=== PATIENT | male | born 1950 | race Hispanic/Latino ===

== ENCOUNTER 2018-01-15 00:25 | Inpatient (IN) | payer BC, MEDICARE ==
[2018-01-15 00:56] LABS: #Basophils 0.1 thou/uL (0.0-0.2); #Eosinphils 0.1 thou/uL (0.0-0.7); #Lymphocytes 3.3 thou/uL (1.20-3.40); #Monocytes 0.7 thou/uL (0.11-0.59); #Neutrophils 5.2 thou/uL (1.40-6.50); %Basophils 0.9 % (0.0-1.0); %Eosinophils 1.3 % (0.0-10.0); %Lymphocytes 35.3 % (21.0-51.0); %Neutrophils 55.6 % (42.0-75.0); Hemoglobin 14.4 g/dL (14.0-18.0); Mean Corpuscular HGB CONC 33.5 g/dL (32.0-36.0); Mean Corpuscular Volume 92.6 fL (78.0-98.0); Mean Platelet Volume 9.3 fL (7.4-10.4); Platelet Count 189 thou/uL (130-400); RBC Distribution Width 11.6 % (11.5-14.5); Red Blood Cell (RBC) Count 4.66 mill/uL (4.70-6.10); White Blood Cell (WBC) Count 9.4 thou/uL (4.8-10.8)
[2018-01-15 01:01] LABS: INR-International Normal Ratio 1.2; Prothrombin Time 14.9 SEC (12.0-14.7)
[2018-01-15] MEDS ORDERED: niCARdipine 20MG In NaCl 20 MG/200 ML BAG ONE (01:02)
[2018-01-15 01:15] LABS: ALT (SGPT) 35 U/L (8-55); AST (SGOT) 28 U/L (5-34); Albumin 4.7 g/dL (3.4-4.8); Alkaline Phosphatase 81 U/L (40-150); Anion Gap 16 mmol/L (10-20); BUN (Urea Nitrogen) 25 mg/dL (8.4-25.7); Bilirubin, Total 0.8 mg/dL (0.2-1.2); Calc. Creatinine Clearance 0 mL/min (70-130); Calcium 9.9 mg/dL (7.8-10.44); Carbon Dioxide 22 mmol/L (23-31); Chloride 102 mmol/L (98-107); Estimated GFR-MDRD 55; Globulin 2.8 g/dL (2.4-3.5); Glucose 188 mg/dL (80-115); Protein, Total 7.5 g/dL (5.8-8.1); Sodium 136 mmol/L (136-145)
[2018-01-15 01:19] LABS: CKMB 2.4 ng/mL (0-6.6); Troponin I Less than 0.010 ng/mL (< 0.028)
[2018-01-15] MEDS ORDERED: Ondansetron PF 4 MG/2 ML Vial IVP PRN (01:50)
[2018-01-15] MEDS: Sodium Chloride 0.9% 1,000 ML IV SCH ×2 (02:52→14:32)
[2018-01-15] MEDS: Acetaminophen 650 MG in Premix Bag 1 BAG IVPB PRN ×3 (02:52→14:32)
[2018-01-15] MEDS: niCARdipine HCl 25 MG in Sodium Chloride 0.9% 250 ML 240 ML IVPB SCH ×2 (03:39→06:08)
--- NOTE | 2018-01-15 07:07 | HP-2 ---
DATE OF ADMISSION: 01/15/2018 ATTENDING PHYSICIAN: Claus Carter M.D. HISTORY OF PRESENT ILLNESS: The patient is a 67-year-old male with a past medical history o f hypertension, hyperlipidemia, type 2 diabetes, who presented to the emergency department per EMS fo r acute onset of left-sided weakness, left-sided facial droop, and confusion, which began around 23:5 5 where he works at [employer]. CT head was done on arrival, which was notable for a large righ t-sided basal ganglia, intracranial hemorrhage with extension into the right frontal lobe with eviden ce of midline shift from right to left. Patient was also significantly hypertensive on arrival with systolic blood pressure greater than 200 initially. Neurosurgery was consulted for further evaluatio n and management of this patient. I presented to the emergency department and saw the patient in bed 10. Family is also at the bedside. The patient is Citizen Of [place]-speaking only and they are able to trans late for me. The patient is oriented to person and time, but not place. He believes he is currently at work and very confused. He has flaccid left upper extremity paralysis and left-sided neglect. H braden is also noted to have a left-sided facial droop. He has good right-sided strength and follows comm ands on this side as well. He is seen moving the left lower extremity spontaneously. ER has recentl y started Cardene drip and he has had improvement in his blood pressure; most recent blood pressure w hile I am in the room was 167/71. Family reports that the patient does not take any anticoagulants o r aspirin on a regular basis. PAST MEDICAL HISTORY: Hypertension, hyperlipidemia, type 2 diabetes, hypothyroid. PAST SURGICAL HISTORY: Denied any prior surgeries. SOCIAL HISTORY: The patient does not smoke, drink, or use any drugs. ALLERGIES: He has no known drug allergies. REVIEW OF SYSTEMS: Per HPI. PHYSICAL EXAMINATION: VITAL SIGNS: BP is 167/71, respiration rate is 18, he is 100% on room air, pulse rate is 124, and a temperature of 96.6. CONSTITUTIONAL: Patient is awake and alert. He is oriented to person and year. He is not oriented to place and markedly confused. He does follow some commands. HEAD: Normocephalic, atraumatic. Noted left-sided facial droop. EYES: PERRLA. Extraocular movements are intact. NECK: Nontender to palpation. Free active range of motion, no meningismus or nuchal rigidity. RESPIRATORY: He has a normal respiration rate. Symmetric chest expansion, no evidence of dyspnea. CARDIOVASCULAR: Tachycardic. MUSCULOSKELETAL: No deformities are appreciated. He has flaccid paralysis of the left upper extremi ty. He has good right-sided strength in the right upper and lower extremities and is able to move th is side without difficulty. NEUROLOGIC: He is oriented to person and time. He has normal speech. He is not oriented to place. He is noted to have a left-sided facial droop and left-sided with flaccid paralysis to the lef t upper extremity. ASSESSMENT: Acute intracranial hemorrhage, likely hypertensive in origin. PLAN: The patient will be admitted to the ICU for q.1 neuro checks and close monitoring. He was sta rted on a Cardene drip for strict blood pressure control with a soft systolic blood pressure goal of 140. Head of the bed will be elevated to 30 degrees. He has no history of anticoagulant use and the n will be given at this time. SCDs for DVT prophylaxis. I have also consulted Critical Care, the spitalist, and Stroke team for assistance in medical management. We will plan to repeat his a.m. CT head at 5 in the morning. I have discussed this plan with Dr. Carter, who is also in agreement.
[2018-01-15 07:15] LABS: #Monocytes 0.5 thou/uL (0.11-0.59); #Neutrophils 8.5 thou/uL (1.40-6.50); %Basophils 0.2 % (0.0-1.0); %Eosinophils 0.1 % (0.0-10.0); %Lymphocytes 9.5 % (21.0-51.0); %Neutrophils 85.1 % (42.0-75.0); Mean Corpuscular HGB CONC 33.3 g/dL (32.0-36.0); Mean Corpuscular Hemoglobin 31.4 pg (27.0-31.0); Mean Corpuscular Volume 94.1 fL (78.0-98.0); Mean Platelet Volume 9.3 fL (7.4-10.4); Platelet Count 168 thou/uL (130-400); RBC Distribution Width 11.5 % (11.5-14.5); Red Blood Cell (RBC) Count 4.48 mill/uL (4.70-6.10); White Blood Cell (WBC) Count 9.9 thou/uL (4.8-10.8)
[2018-01-15 07:29] LABS: Anion Gap 11 mmol/L (10-20); BUN (Urea Nitrogen) 21 mg/dL (8.4-25.7); Calc. Creatinine Clearance 67 mL/min (70-130); Calcium 9.4 mg/dL (7.8-10.44); Carbon Dioxide 20 mmol/L (23-31); Chloride 104 mmol/L (98-107); Estimated GFR-MDRD 67; Glucose 240 mg/dL (80-115); Sodium 131 mmol/L (136-145)
--- NOTE | 2018-01-15 07:46 | CT ---
CT OF THE BRAIN WITHOUT CONTRAST: INDICATION: Level I stroke with presentation to the ER with left facial droop, left-sided weakness, last seen nor [facility] at 2355 hours. COMPARISON: Prior CT of the brain dated 01/22/2014. FINDINGS: There is a large intraparenchymal hemorrhage centered within the right globus pallidus extending into the right frontal lobe measuring 9.0 x 3.3 cm. There is [id number] midline shift of 1.2 cm. The re is stable encephalomalacia within the left frontal lobe. The skull and extracranial soft tissues are unremarkable. IMPRESSION: Large intraparenchymal hemorrhage centered within the right globus pallidus extending into the right frontal lobe with [id number] midline shift of 1.2 cm anteriorly. The findings were called to Dr. Bolden at 12:38 a.m. on 01/15/2018. CODE CR POS: BH
--- NOTE | 2018-01-15 10:39 | PRG ---
DATE OF SERVICE: 01/15/2018 The patient was seen and examined. I agree with Anny Schumacher PA-C evaluation 01/15/2018. HISTORY OF PRESENT ILLNESS: The patient is a 67-year-old man who suddenly became hemiplegic and was brought to the emergency room. He was found to be severely hypertensive. Currently, he is alert, dysarthric and Filipino speaking. He does say his name and follow commands. He has a dense left hemiplegia. He has left-sided neglect. He is strong on the right. CT of the head reveals a very large right inferior basal ganglia hemorrhage with extension into the r ight medial temporal lobe and probably in the right temporal horn of lateral ventricle. There is no hydrocephalus and moderate mass effect. This was stable on followup CT this morning. IMPRESSION AND PLAN: Large basal ganglia hemorrhage. We will continue close observation with neuro monitoring in the ICU for today. He remains high risk for deterioration. We will continue with clos e blood pressure control, attempt a bedside swallow evaluation and pursue hemorrhagic stroke orders. We will plan repeat head CT tomorrow. I updated the patient's and daughter.
--- NOTE | 2018-01-15 12:14 | CT ---
PRELIMINARY REPORT/[facility]/EMERGENCY AFTER HOURS PROCEDURE: EXAM: CT Head Without Intravenous Contrast EXAM DATE/TIME: 01/15/2018 4:58 AM CLINICAL HISTORY: 67 years old, male; Condition or disease; Other: Stroke; Patient HX: F/u stroke/ intracerebral hemorr robby TECHNIQUE: Axial computed tomography images of the head/brain without intravenous contrast. COMPARISON: CT Brain WO Con 01/15/2018 12:31 AM FINDINGS: Brain: Redemonstrated is a 8 cm RIGHT frontotemporal lobe parenchymal hematoma with surrounding edema resulting in mass effect/midline shift of at least 16 mm, essentially unchanged from prior. Ventricles: There is effacement of the RIGHT lateral ventricle. Bones/joints: Normal. No acute fracture. Sinuses: Normal as visualized. No acute sinusitis. Mastoid air cells: Normal as visualized. No mastoid effusion. Soft tissues: Normal. Vasculature: Posterior falx calcifications are present. IMPRESSION: Large RIGHT frontotemporal lobe parenchymal hematoma with midline shift, essentially unchanged from p rior. Thank you for allowing us to participate in the care of your patient. Dictated and Authenticated by: Johan Alberto MD 01/15/2018 5:12 AM Central Time ([place] & [place]) FINAL REPORT CT HEAD NONCONTRAST PERFORMED ON AN EMERGENCY BASIS: Date: 01/15/18 Time: 0500 hours HISTORY: Intracranial hemorrhage. Follow-up. COMPARISON: 01/15/18. FINDINGS/IMPRESSION: Findings agree with the preliminary report by Marin. The large intraparenchymal hematoma at the right cerebral hemisphere and associated mass effect are not significantly changed from the previous exam. POS: CRESENCIO
[2018-01-15] MEDS: Morphine 2 MG/ML SYRINGE SLOW IVP PRN (14:33)
--- NOTE | 2018-01-15 21:59 | CON ---
DATE OF CONSULTATION: 01/15/2018 HISTORY OF PRESENT ILLNESS: Darshana is an unfortunate gentleman had a parenchymal brain hemo rrhage. He has been admitted to the critical care unit. At this time, he is stable from an airway standpoint . I was consulted because of his presence in the critical care unit. PAST MEDICAL HISTORY: Remarkable for lipid disorder, diabetes, hypertension, and hypothyroidism. SOCIAL HISTORY: Non-smoker, nondrinker. ALLERGIES: He has no drug allergies. REVIEW OF SYSTEMS: Not obtainable. PHYSICAL EXAMINATION: VITAL SIGNS: Blood pressure 137/66, heart rate in the 60s, sinus rhythm, respiratory rate is in the teens. HEENT: His pupils react. Sclerae is anicteric. Extraocular movements appear to be full. He has le ft facial droop. NECK: Supple, no lymphadenopathy. LUNGS: Clear. HEART: Regular rhythm. S1 and S2 are normal. ABDOMEN: Soft and nontender. EXTREMITIES: Remarkable for left hemiparalysis. IMPRESSION: Parenchymal brain hemorrhage. PLAN: Blood pressure control, observation in the critical care unit. A 70-minute consult, 50% of the time was spent coordinating care on the unit.
--- NOTE | 2018-01-15 23:09 | PDOC.PN ---
- Subjective Encounter Start Date: 01/15/18 Encounter Start Time: 12:00 -: non-verbal Patient seen and examined for med mngt. Confused. - Objective MAR Reviewed: Yes Vital Signs & Weight: Vital Signs (12 hours) Temp Pulse Pulse BP BP Pulse Ox Pulse Ox 01/15/18 20:00 99 F 01/15/18 16:00 98.9 F 01/15/18 13:32 67 76 124/68 138/69 98 98 01/15/18 12:00 98 F Weight Admit Weight 160 lb 7.9 oz Weight 160 lb 7.944 oz Most Recent Monitor Data Heart Rate from ECG 78 NIBP 151/75 NIBP BP-Mean 100 Respiration from ECG 17 SpO2 100 I&O: 01/14/18 01/15/18 01/16/18 06:59 06:59 06:59 Intake Total 731 1413 Output Total 1067 2115 Balance -456 -669 Result Diagrams: 01/15/18 06:57 01/15/18 06:57 Additional Labs: Accuchecks 01/15/18 00:28 POC Glucose 148 H EKG Reviewed by me: Yes (SR) Phys Exam - Physical Examination Constitutional: NAD Respiratory: no wheezing, no rhonchi Cardiovascular: RRR, no rub Gastrointestinal: soft, non-tender, positive bowel sounds Musculoskeletal: no edema Neuro/Psych - Cannot assess due to current mentation Dx/Plan - Plan DVT proph w/SCDs 1. DM2 2. HTN 3. HLD 4. Hypothyroidism PLAN: Start sliding scale Cardene drip PRN Will resume PO meds when mentation improves Thank you for this consultation. Will follow Review of Systems - Review of Systems Other: Cannot obtain due to current mentation - Medications/Allergies Allergies/Adverse Reactions: Allergies Allergy/AdvReac Type Severity Reaction Status Date / Time No Known Drug Allergies Allergy Verified 01/15/18 06:09 Medications: Current Medications Acetaminophen 650 mg/ Device 65 mls @ 260 mls/hr IVPB Q6H PRN PRN Reason: Mild Pain (1-3) Stop: 01/16/18 01:38 Last Admin: 01/15/18 14:32 Dose: 65 mls Nicardipine HCl 25 mg/ Sodium (Chloride) 250 mls @ 0 mls/hr IVPB INF [facility]; Protocol Last Admin: 01/15/18 06:08 Dose: 250 mls Sodium Chloride (Normal Saline 0.9%) 1,000 mls @ 75 mls/hr IV .[id number] [id number] Last Admin: 01/15/18 14:32 Dose: 1,000 mls Morphine Sulfate (Morphine) 2 mg SLOW IVP Q4H PRN PRN Reason: Moderate to Severe Pain (6-10) Last Admin: 01/15/18 14:33 Dose: 2 mg Ondansetron HCl (Zofran) 4 mg IVP Q6H PRN PRN Reason: Nausea/Vomiting Pneumococcal 13-Valent Conj Vacc (Prevnar) 0.5 ml IM .ONCE ONE Stop: 01/16/18 09:01 Sodium Chloride (Flush - Normal Saline) 10 ml IVF PRN PRN PRN Reason: Saline Flush
[2018-01-15] MEDS ORDERED: Labetalol HCl 100 MG/20 ML VIAL SLOW IVP PRN (23:13)
[2018-01-15] MEDS ORDERED: hydrALAZINE 20 MG/ML VIAL SLOW IVP PRN (23:13)
[2018-01-15] MEDS ORDERED: Dextrose 50% Abboject 50 ML SYRINGE SLOW IVP PRN (23:14)
[2018-01-15] MEDS ORDERED: Dextrose 5% in Water 1,000 ML IV PRN (23:14)
[2018-01-16] MEDS: Morphine 2 MG/ML SYRINGE SLOW IVP PRN ×3 (03:42→21:16)
[2018-01-16 04:26] LABS: #Lymphocytes 1.4 thou/uL (1.20-3.40); #Monocytes 0.5 thou/uL (0.11-0.59); #Neutrophils 5.9 thou/uL (1.40-6.50); %Basophils 0.1 % (0.0-1.0); %Eosinophils 0.5 % (0.0-10.0); %Lymphocytes 18.2 % (21.0-51.0); %Monocytes 6.2 % (0.0-10.0); %Neutrophils 74.9 % (42.0-75.0); Hemoglobin 13.2 g/dL (14.0-18.0); Mean Corpuscular HGB CONC 32.8 g/dL (32.0-36.0); Mean Corpuscular Hemoglobin 30.8 pg (27.0-31.0); Mean Platelet Volume 9.8 fL (7.4-10.4); Platelet Count 146 thou/uL (130-400); RBC Distribution Width 11.8 % (11.5-14.5); White Blood Cell (WBC) Count 7.9 thou/uL (4.8-10.8)
[2018-01-16 04:54] LABS: Anion Gap 11 mmol/L (10-20); BUN (Urea Nitrogen) 11 mg/dL (8.4-25.7); Calc. Creatinine Clearance 87 mL/min (70-130); Calcium 9.2 mg/dL (7.8-10.44); Carbon Dioxide 23 mmol/L (23-31); Chloride 105 mmol/L (98-107); Estimated GFR-MDRD Greater than 90; Glucose 136 mg/dL (80-115); Magnesium 1.6 mg/dL (1.6-2.6); Potassium 3.7 mmol/L (3.5-5.1); Sodium 135 mmol/L (136-145)
--- NOTE | 2018-01-16 08:14 | CT ---
PRELIMINARY REPORT/[facility]/EMERGENTY AFTER-HOURS PROCEDURE CT Head Without Intravenous Contrast EXAM DATE/TIME: 01/16/2018 3:59 AM CLINICAL HISTORY: 67 years old, male; Condition or disease; Other: Ich; Patient HX: F/u ich TECHNIQUE: Axial computed tomography images of the head/brain without intravenous contrast. COMPARISON: CT Brain WO Con 01/15/2018 4:58 AM FINDINGS: Brain: Redemonstrated is a 8.8 cm RIGHT frontotemporal parenchymal hematoma, unchanged from prior. Midline shift: Stable midline shift. Ventricles: Normal. No ventriculomegaly. Bones/joints: Normal. No acute fracture. Sinuses: Normal as visualized. No acute sinusitis. Mastoid air cells: Normal as visualized. No mastoid effusion. Soft tissues: Normal. IMPRESSION: RIGHT frontal temporal lobe parenchymal hematoma resulting in mass effect/midline shift, essentially unchanged from prior. Thank you for allowing us to participate in the care of your patient. Dictated and Authenticated by: Johan Alberto MD 01/16/2018 4:12 AM Central Time ([place] & [place]) FINAL REPORT EMERGENCY AFTER HOURS BRAIN CT WITHOUT IV CONTRAST: Date: 01/16/18 Time: 0401 hours FINDINGS/IMPRESSION: Large right temporal frontal parenchymal hematoma with approximately 0.7 cm of midline shift to the l eft, stable from 01/15/18. Report in agreement with preliminary report given on-call by Marin. POS: CRESENCIO
[2018-01-16] MEDS ORDERED: Levothyroxine Sodium 125 MCG TAB PO SCH (08:45)
[2018-01-16] MEDS ORDERED: Prevnar 13-Val Conj/PF 0.5 ML SYRINGE IM ONE (09:00)
--- NOTE | 2018-01-16 09:40 | PRG ---
DATE OF SERVICE: 01/16/2018 Mr. Gilliland is neurologically unchanged. He arouses easily, opens his eyes and follows comma nds on the right. He continues to have a dense left hemiparesis. CT scan is unchanged. Blood pressure control remains an issue and I am deferring to the medical team in this regard. He fa iled a swallow evaluation yesterday and I anticipate he will have a repeat swallow evaluation today. If he fails this he will need some type of temporary nutrition presumably via feeding tube. From a neurosurgical perspective, he can be safely transferred out of the ICU once the above issues were add ressed. I updated his son.
--- NOTE | 2018-01-16 09:53 | PRG-2 ---
DATE OF SERVICE: 01/16/2018 ATTENDING PHYSICIAN: Claus Carter M.D. SUBJECTIVE: This is a 67-year-old male who suffered a large right-sided basal ganglia hemorrhage, likely related to uncontrolled hypertension. He has been monitored in the ICU with frequent neuro checks and he continues to gradually improve. His CT scan this morning shows stable right-sided hemorrhage in the basal ganglia region with extension into the right frontal area. There is no hydrocephalus, but there is moderate mass effect. I am visiting the patient in the ICU. He is awake and alert and oriented to person, place and time. He has left-sided neglect. He also has significant left hemiplegia, but this is actually improved today on my exam and he is able to lightly squeeze my hand. He is also able to wiggle his toes today on the left. On the right side, he follows commands, has good strength throughout. IMPRESSION AND PLAN: We will continue to monitor the patient closely in the ICU with strict blood pressure control. Unfortunately, he failed his swallow study yesterday, but we will repeat again today. Continue BP control per medicine team recommendations. Once off cardene pt could transfer to stroke unit if medicine and cc agree. The patient will continue to work with physical therapy and occupational therapy while he is inpatient. CHUYITA
[2018-01-16] MEDS: Amlodipine 5 MG TAB PO SCH ×2 (15:16→20:04)
[2018-01-16] MEDS: Atorvastatin Calcium 20 MG TAB PO SCH (15:18)
[2018-01-16] MEDS: Sodium Chloride 0.9% 1,000 ML IV SCH ×2 (15:18→18:12)
--- NOTE | 2018-01-16 15:22 | RAD ---
ABDOMEN ONE VIEW: History: Dobbhoff placement. Comparison: None. FINDINGS: Dobbhoff is coiled in the gastric body with the tip at the gastric fundus. IMPRESSION: Coiled Dobbhoff tube. Retraction and re-advancement recommended.
--- NOTE | 2018-01-16 17:14 | PRG ---
DATE OF SERVICE: 01/16/2018 SUBJECTIVE: Mr. Gilliland is improved today. He is verbalizing a little bit more obese, but h e still dysarthric. He is ignoring his left side as expected. OBJECTIVE: VITAL SIGNS: Heart rate 62, blood pressure 151/80, respiratory rates in the teens. LUNGS: Clear. CARDIOVASCULAR: Regular rhythm. ABDOMEN: Soft. EXTREMITIES: Without asymmetry. There was weaned off Cardene this morning. LABORATORY DATA: White count 7.9, hemoglobin 13.2, platelets 146. Sodium 135, potassium 3.7, chlori de 105, bicarb 23, BUN 11, creatinine 0.84, glucose 136. IMPRESSION: Hemorrhagic cerebrovascular accident, likely secondary to uncontrolled hypertension. He is unable to swallow at this point, so a Dobbhoff tube has been placed. He is stable to transfer out of the Critical Care environment.
[2018-01-16] MEDS ORDERED: hydrALAZINE 20 MG/ML VIAL SLOW IVP PRN (21:47)
[2018-01-16] MEDS ORDERED: Benzonatate 100 MG CAP PO PRN (22:22)
--- NOTE | 2018-01-16 22:29 | PDOC.PN ---
- Subjective Encounter Start Date: 01/16/18 Encounter Start Time: 09:45 Patient seen and examined for med mngt. Mentation improving No new complaints. No overnight events - Objective MAR Reviewed: Yes Vital Signs & Weight: Vital Signs (12 hours) Temp Pulse BP Pulse Ox 01/16/18 22:02 57 L 164/69 H 01/16/18 20:04 89 156/129 H 01/16/18 19:34 100 01/16/18 19:00 98.5 F 01/16/18 18:12 62 151/80 H 01/16/18 16:00 98.0 F 01/16/18 15:16 62 151/80 H 01/16/18 12:00 98.0 F Weight Admit Weight 160 lb 7.9 oz Weight 157 lb 10.088 oz Most Recent Monitor Data Heart Rate from ECG 65 NIBP 164/69 NIBP BP-Mean 100 Respiration from ECG 15 SpO2 100 I&O: 01/15/18 01/16/18 01/17/18 06:59 06:59 06:59 Intake Total 731 1413 847 Output Total 1065 2495 830 Balance -334 -1082 17 Result Diagrams: 01/17/18 03:45 01/17/18 03:45 Additional Labs: Accuchecks 01/16/18 01/16/18 01/16/18 19:48 17:14 10:30 POC Glucose 146 H 184 H 114 H 01/16/18 01/16/18 04:39 00:01 POC Glucose 129 H 136 H EKG Reviewed by me: Yes (Tele SR) Phys Exam - Physical Examination Constitutional: NAD Respiratory: no wheezing, no rhonchi Cardiovascular: RRR, no rub Gastrointestinal: soft, non-tender, positive bowel sounds Musculoskeletal: no edema Neuro - No new focal deficits Dx/Plan - Plan DVT proph w/SCDs 1. DM2 2. HTN 3. HLD 4. Hypothyroidism 5. Hemorrhagic CVA - Mngt per Primary service 6. Swallow dys PLAN: Cont sliding scale and current meds as below Cardene drip PRN Cont PRN antihtn Will resume PO meds when able to swallow Not on antiplatelet due to hemorrhagic CVA Full code - DPOA - self/family Review of Systems - Review of Systems Respiratory: negative: Cough, Dry, Shortness of Breath, Hemoptysis, SOB with Excertion, Pleuritic Pain, Sputum, Wheezing Cardiovascular: negative: chest pain, palpitations, orthopnea, paroxysmal nocturnal dyspnea, edema, light headedness, other - Medications/Allergies Allergies/Adverse Reactions: Allergies Allergy/AdvReac Type Severity Reaction Status Date / Time No Known Drug Allergies Allergy Verified 01/15/18 06:09 Medications: Current Medications Amlodipine Besylate (Norvasc) 5 mg PO BID [facility] Last Admin: 01/16/18 20:04 Dose: 5 mg Atorvastatin Calcium (Lipitor) 20 mg PO DAILY [facility] Last Admin: 01/16/18 15:18 Dose: Not Given Benzonatate (Tessalon) 100 mg PO TIDPRN PRN PRN Reason: Cough Dextrose/Water (Dextrose 50%) 25 gm SLOW IVP PRN PRN PRN Reason: Hypoglycemia Glucagon (Glucagon) 1 mg IM PRN PRN PRN Reason: Hypoglycemia Hydralazine HCl (Apresoline) 20 mg SLOW IVP Q4H PRN PRN Reason: Sbp Greater Than 150 Last Admin: 01/16/18 22:02 Dose: 20 mg Nicardipine HCl 25 mg/ Sodium (Chloride) 250 mls @ 0 mls/hr IVPB INF [facility]; Protocol Last Admin: 01/15/18 06:08 Dose: 250 mls Sodium Chloride (Normal Saline 0.9%) 1,000 mls @ 75 mls/hr IV .[id number] [facility] Last Admin: 01/16/18 18:12 Dose: 1,000 mls Dextrose/Water (D5w) 1,000 mls @ 0 mls/hr IV .Q0M PRN PRN Reason: Hypoglycemia Insulin Human Regular (Humulin R) 0 units SC .MILD SLIDING SCALE PRN PRN Reason: Mild Correctional Scale Insulin Human Regular (Humulin R) 0 units SC .BEDTIME SLIDING SC PRN PRN Reason: Bedtime Correctional Scale Levothyroxine Sodium (Synthroid) 125 mcg PO 0600 [facility] Lisinopril (Zestril) 20 mg PO NOW [facility] Stop: 01/16/18 23:59 Morphine Sulfate (Morphine) 2 mg SLOW IVP Q4H PRN PRN Reason: Moderate to Severe Pain (6-10) Last Admin: 01/16/18 21:16 Dose: 2 mg Ondansetron HCl (Zofran) 4 mg IVP Q6H PRN PRN Reason: Nausea/Vomiting Sodium Chloride (Flush - Normal Saline) 10 ml IVF PRN PRN PRN Reason: Saline Flush
[2018-01-16] MEDS ORDERED: Lisinopril 20 MG TAB PO SCH (22:30)
[2018-01-16] MEDS ORDERED: cloNIDine 0.1 MG TAB PO SCH (23:59)
[2018-01-17] MEDS: niCARdipine HCl 25 MG in Sodium Chloride 0.9% 250 ML 240 ML IVPB SCH ×2 (01:26→05:24)
[2018-01-17] MEDS: Morphine 2 MG/ML SYRINGE SLOW IVP PRN (01:55)
[2018-01-17 04:11] LABS: #Basophils 0.1 thou/uL (0.0-0.2); #Lymphocytes 1.3 thou/uL (1.20-3.40); #Monocytes 0.7 thou/uL (0.11-0.59); #Neutrophils 8.6 thou/uL (1.40-6.50); %Basophils 0.7 % (0.0-1.0); %Eosinophils 0.3 % (0.0-10.0); %Lymphocytes 12.5 % (21.0-51.0); %Monocytes 6.6 % (0.0-10.0); Hemoglobin 14.2 g/dL (14.0-18.0); Mean Corpuscular HGB CONC 34.1 g/dL (32.0-36.0); Mean Corpuscular Hemoglobin 31.9 pg (27.0-31.0); Mean Corpuscular Volume 93.7 fL (78.0-98.0); Mean Platelet Volume 9.8 fL (7.4-10.4); Platelet Count 152 thou/uL (130-400); RBC Distribution Width 11.7 % (11.5-14.5); Red Blood Cell (RBC) Count 4.46 mill/uL (4.70-6.10); White Blood Cell (WBC) Count 10.8 thou/uL (4.8-10.8)
[2018-01-17 04:31] LABS: Anion Gap 15 mmol/L (10-20); BUN (Urea Nitrogen) 13 mg/dL (8.4-25.7); Calc. Creatinine Clearance 82 mL/min (70-130); Calcium 9.2 mg/dL (7.8-10.44); Carbon Dioxide 19 mmol/L (23-31); Chloride 106 mmol/L (98-107); Estimated GFR-MDRD 87; Glucose 142 mg/dL (80-115); Magnesium 1.7 mg/dL (1.6-2.6); Potassium 3.6 mmol/L (3.5-5.1); Sodium 136 mmol/L (136-145)
[2018-01-17] MEDS: Levothyroxine Sodium 125 MCG TAB PO SCH (05:20)
--- NOTE | 2018-01-17 07:25 | RAD ---
KUB: Date: 01/16/18 INDICATION: Dobbhoff tube placement. IMPRESSION: Dobbhoff feeding tube is seen within the region of the gastric antrum. Remainder of the examination i s unchanged from the comparison obtained earlier at 1510 hours. POS: CRESENCIO
[2018-01-17] MEDS: Amlodipine 5 MG TAB PO SCH ×2 (09:35→20:23)
[2018-01-17] MEDS: Atorvastatin Calcium 20 MG TAB PO SCH (09:35)
[2018-01-17] MEDS: Sodium Chloride 0.9% 1,000 ML IV SCH (10:05)
--- NOTE | 2018-01-17 10:11 | PRG ---
DATE OF SERVICE: 01/17/2018 SUBJECTIVE: He is clinically unchanged. His blood pressure crept up last night. He was placed back on Cardene. OBJECTIVE: VITAL SIGNS: Heart rates in the 60s, blood pressure 131/66, respiratory rates in the teens to low 20 s. LUNGS, HEART, ABDOMEN: Unchanged. LABORATORY DATA: White count 10.8, hemoglobin 14.2, platelets 152. Electrolytes were unremarkable. IMPRESSION: Hemorrhagic cerebrovascular accident, likely secondary to untreated hypertension. PLAN: Continue to adjust hypertension meds, an AMARILYS inhibitor with hydrochlorothiazide was started th is morning. He is also started on Norvasc. I suspect he will stabilize throughout the day and the C ardene can be weaned off.
[2018-01-17] MEDS: Lisinopril/Hydrochlorothiazide 20/25 mg Tablet PO SCH (11:25)
[2018-01-17] MEDS ORDERED: cloNIDine 0.1 MG TAB PO PRN (11:26)
--- NOTE | 2018-01-17 20:49 | PDOC.PN ---
- Subjective Encounter Start Date: 01/17/18 Encounter Start Time: 11:00 Patient seen and examined for med mngt. No new focal deficits No new complaints. No overnight events - Objective MAR Reviewed: Yes Vital Signs & Weight: Vital Signs (12 hours) Temp Pulse Pulse Pulse Pulse BP BP 01/17/18 20:23 90 149/71 H 01/17/18 17:00 98.3 F 01/17/18 16:00 98.8 F 01/17/18 12:00 98.7 F 01/17/18 11:25 67 145/61 H 01/17/18 10:19 57 L 61 126/54 L 01/17/18 09:35 67 131/62 01/17/18 09:34 86 95 72 130/65 BP BP Pulse Ox Pulse Ox 01/17/18 20:23 01/17/18 17:00 01/17/18 16:00 01/17/18 12:00 01/17/18 11:25 01/17/18 10:19 113/56 L 100 100 01/17/18 09:35 01/17/18 09:34 133/66 147/51 H Weight Admit Weight 160 lb 7.9 oz Weight 158 lb 4.67 oz Most Recent Monitor Data Heart Rate from ECG 79 NIBP 159/69 NIBP BP-Mean 99 Respiration from ECG 29 SpO2 98 I&O: 01/16/18 01/17/18 01/18/18 06:59 06:59 06:59 Intake Total 1413 1725 851 Output Total 2495 1305 1760 Balance -3382 359 -557 Result Diagrams: 01/17/18 03:45 01/17/18 03:45 Additional Labs: Accuchecks 01/17/18 01/17/18 01/17/18 20:19 16:43 13:03 POC Glucose 132 H 132 H 141 H 01/17/18 01/16/18 09:17 23:24 POC Glucose 128 H 144 H EKG Reviewed by me: Yes (Tele SR) Phys Exam - Physical Examination Constitutional: NAD Respiratory: no wheezing, no rhonchi Cardiovascular: RRR, no rub Gastrointestinal: soft, positive bowel sounds Musculoskeletal: no edema Dx/Plan - Plan DVT proph w/SCDs 1. DM2 2. HTN - on Cardene drip 3. HLD 4. Hypothyroidism 5. Hemorrhagic CVA - Mngt per Primary service 6. Swallow dys PLAN: Cont sliding scale Cont Cardene drip PRN On Lisinopril/HCTZ and Amlodipine Not on antiplatelet due to hemorrhagic CVA Cont other meds as below Review of Systems - Review of Systems Respiratory: negative: Cough, Dry, Shortness of Breath, Hemoptysis, SOB with Excertion, Pleuritic Pain, Sputum, Wheezing Cardiovascular: negative: chest pain, palpitations, orthopnea, paroxysmal nocturnal dyspnea, edema, light headedness, other - Medications/Allergies Allergies/Adverse Reactions: Allergies Allergy/AdvReac Type Severity Reaction Status Date / Time No Known Drug Allergies Allergy Verified 01/15/18 06:09 Medications: Current Medications Amlodipine Besylate (Norvasc) 5 mg PO BID COUNTS INCLUDE 234 BEDS AT THE [facility] Last Admin: 01/17/18 20:23 Dose: 5 mg Atorvastatin Calcium (Lipitor) 20 mg PO DAILY COUNTS INCLUDE 234 BEDS AT THE [facility] Last Admin: 01/17/18 09:35 Dose: 20 mg Benzonatate (Tessalon) 100 mg PO TIDPRN PRN PRN Reason: Cough Clonidine (Catapres) 0.1 mg PO Q4H PRN PRN Reason: Systolic BP > 180 Last Admin: 01/17/18 20:23 Dose: 0.1 mg Dextrose/Water (Dextrose 50%) 25 gm SLOW IVP PRN PRN PRN Reason: Hypoglycemia Glucagon (Glucagon) 1 mg IM PRN PRN PRN Reason: Hypoglycemia Lisinopril/HCTZ (Prinizide 20-25) 1 tab PO DAILY COUNTS INCLUDE 234 BEDS AT THE [facility] Last Admin: 01/17/18 11:25 Dose: 1 tab Hydralazine HCl (Apresoline) 20 mg SLOW IVP Q4H PRN PRN Reason: Sbp Greater Than 150 Last Admin: 01/16/18 22:02 Dose: 20 mg Nicardipine HCl 25 mg/ Sodium (Chloride) 250 mls @ 0 mls/hr IVPB INF COUNTS INCLUDE 234 BEDS AT THE [facility]; Protocol Last Admin: 01/17/18 05:24 Dose: 250 mls Sodium Chloride (Normal Saline 0.9%) 1,000 mls @ 75 mls/hr IV .[id number] COUNTS INCLUDE 234 BEDS AT THE [facility] Last Admin: 01/17/18 10:05 Dose: 1,000 mls Dextrose/Water (D5w) 1,000 mls @ 0 mls/hr IV .Q0M PRN PRN Reason: Hypoglycemia Insulin Human Regular (Humulin R) 0 units SC .MILD SLIDING SCALE PRN PRN Reason: Mild Correctional Scale Insulin Human Regular (Humulin R) 0 units SC .BEDTIME SLIDING SC PRN PRN Reason: Bedtime Correctional Scale Levothyroxine Sodium (Synthroid) 125 mcg PO 0600 [facility] Last Admin: 01/17/18 05:20 Dose: 125 mcg Morphine Sulfate (Morphine) 2 mg SLOW IVP Q4H PRN PRN Reason: Moderate to Severe Pain (6-10) Last Admin: 01/17/18 01:55 Dose: 2 mg Ondansetron HCl (Zofran) 4 mg IVP Q6H PRN PRN Reason: Nausea/Vomiting Sodium Chloride (Flush - Normal Saline) 10 ml IVF PRN PRN PRN Reason: Saline Flush
[2018-01-18] MEDS: Sodium Chloride 0.9% 1,000 ML IV SCH ×3 (05:57→11:16)
[2018-01-18] MEDS: Levothyroxine Sodium 125 MCG TAB PO SCH (05:57)
[2018-01-18] MEDS: niCARdipine HCl 25 MG in Sodium Chloride 0.9% 250 ML 240 ML IVPB SCH (05:57)
[2018-01-18] MEDS: Lisinopril/Hydrochlorothiazide 20/25 mg Tablet PO SCH (08:25)
[2018-01-18] MEDS: Atorvastatin Calcium 20 MG TAB PO SCH (08:26)
[2018-01-18] MEDS: Amlodipine 5 MG TAB PO SCH ×2 (08:26→20:24)
--- NOTE | 2018-01-18 08:40 | PRG ---
DATE OF SERVICE: 01/18/2018 Mr. Gilliland is on the third day of his hospital stay following a large intracerebral hemorrha ge in the right frontal and temporal lobes. His scan, 2 days ago, showed some mildly increasing jonathan a. At bedside today, he awakens quickly to voice. Pupils are equally round and reactive to light. Extraocular movements are intact. His speech is muffled and somewhat dysarthric; however, he is able to answer me appropriately on all questions that I ask him. He has full motor function in the right upper and right lower extremities with 5/5 strength. On the left side, he actually moves. The full range of motion in the left lower extremity just weak and in the left upper extremity has proximal m ovement, but it is unable to purposefully oil heat technician my hand. So, he is having movement, which appears to be an improvement over previous examinations. Sound is following the patient's case as well. I thin k he yet again failed another swallow study, so we may try again today or we may need to consider oth er routes of nutrition, but it seems that we are getting closer to being able to disposition and out of the ICU. We will discuss with Dr. Walton later.
--- NOTE | 2018-01-18 11:16 | PRG ---
DATE OF SERVICE: 01/14/2018 SERVICE: Pulmonary Medicine. INTERVAL HISTORY: The patient is doing great from a respiratory standpoint. He remains on room air. He seems to be protecting his airway. He denies any current chest pain, nausea, vomiting, fevers o r chills. Otherwise, there has been no interval change to his condition. Nursing reports no overnig ht events. He has been weaned down to on the nicardipine to very low dose. PHYSICAL EXAMINATION: VITAL SIGNS: Afebrile, pulse 93, blood pressure 131/58, respirations 13, saturation 100% on room air . GENERAL: The patient is awake, alert, no apparent distress. LUNGS: Excellent air entry. There is no prolonged expiratory phase, wheezing, rhonchi, or crackles present. HEART: Normal rate, regular. ABDOMEN: Soft, nontender, nondistended. Bowel sounds are positive. MUSCULOSKELETAL: No cyanosis or clubbing. There is no pitting in the bilateral lower extremities. LABORATORY DATA: Blood sugars ranged from 107-132. ASSESSMENT: 1. Cerebrovascular accident, hemorrhagic. 2. Hypertensive emergency. DISCUSSION AND PLAN: We have transitioned him off the Cardene drip. As such, he is stable for trans selena to the stroke unit. Pulmonary Critical Care will continue to follow along for the time being as he is at slightly increased risk of aspiration related lung diseases. We will continue to monitor fo r signs of systemic inflammation and if present, dobson culture and chest x-ray will be considered.
[2018-01-18] MEDS: hydrALAZINE 25 MG TAB PO SCH ×3 (13:03→20:24)
[2018-01-18] MEDS ORDERED: Labetalol HCl 100 MG/20 ML VIAL SLOW IVP PRN (14:36)
[2018-01-18] MEDS ORDERED: hydrALAZINE 20 MG/ML VIAL SLOW IVP PRN (14:36)
[2018-01-18] MEDS ORDERED: Nitroglycerin 2% Ointment 1 INCH/1 GM Packet TOP PRN (14:37)
--- NOTE | 2018-01-18 19:24 | PDOC.PN ---
- Subjective Encounter Start Date: 01/18/18 Encounter Start Time: 10:20 Patient seen and examined for med mngt. On Cardene drip. No new complaints. No overnight events - Objective MAR Reviewed: Yes Vital Signs & Weight: Vital Signs (12 hours) Temp Pulse BP Pulse Ox 01/18/18 17:37 62 140/58 L 01/18/18 16:00 98.3 F 01/18/18 13:03 90 143/67 H 01/18/18 12:00 98.3 F 01/18/18 08:26 90 143/67 H 01/18/18 08:25 71 143/67 H 01/18/18 08:00 98.2 F 100 Weight Admit Weight 160 lb 7.9 oz Weight 158 lb 4.67 oz Most Recent Monitor Data Heart Rate from ECG 78 NIBP 142/68 NIBP BP-Mean 92 Respiration from ECG 19 SpO2 100 I&O: 01/17/18 01/18/18 01/19/18 06:59 06:59 06:59 Intake Total 1725 2031 1385 Output Total 1305 2695 960 Balance 420 -727 425 Result Diagrams: 01/17/18 03:45 01/17/18 03:45 Additional Labs: Accuchecks 01/18/18 01/18/18 01/18/18 17:48 10:13 04:06 POC Glucose 120 H 130 H 107 01/18/18 01/17/18 00:45 20:19 POC Glucose 113 H 132 H EKG Reviewed by me: Yes (Tele SR) Phys Exam - Physical Examination Constitutional: NAD Respiratory: no wheezing, no rhonchi Cardiovascular: RRR, no rub Gastrointestinal: soft, non-tender, positive bowel sounds Musculoskeletal: no edema Dx/Plan - Plan DVT proph w/SCDs 1. DM2 - on Sliding scale 2. HTN - on Cardene drip 3. HLD 4. Hypothyroidism 5. Hemorrhagic CVA - Mngt per Primary service 6. Swallow dys PLAN: Start tube feeds Add Hydralazine PO Wean Cardene drip Cont sliding scale Cont Lisinopril/HCTZ and Amlodipine Not on antiplatelet due to hemorrhagic CVA Cont other meds as below Review of Systems - Review of Systems Respiratory: negative: Cough, Dry, Shortness of Breath, Hemoptysis, SOB with Excertion, Pleuritic Pain, Sputum, Wheezing Cardiovascular: negative: chest pain, palpitations, orthopnea, paroxysmal nocturnal dyspnea, edema, light headedness, other - Medications/Allergies Allergies/Adverse Reactions: Allergies Allergy/AdvReac Type Severity Reaction Status Date / Time No Known Drug Allergies Allergy Verified 01/15/18 06:09 Medications: Current Medications Amlodipine Besylate (Norvasc) 5 mg PO BID [facility] Last Admin: 01/18/18 08:26 Dose: 5 mg Atorvastatin Calcium (Lipitor) 20 mg PO DAILY [facility] Last Admin: 01/18/18 08:26 Dose: 20 mg Benzonatate (Tessalon) 100 mg PO TIDPRN PRN PRN Reason: Cough Last Admin: 01/18/18 17:38 Dose: 100 mg Clonidine (Catapres) 0.1 mg PO Q4H PRN PRN Reason: Systolic BP > 180 Last Admin: 01/17/18 20:23 Dose: 0.1 mg Dextrose/Water (Dextrose 50%) 25 gm SLOW IVP PRN PRN PRN Reason: Hypoglycemia Glucagon (Glucagon) 1 mg IM PRN PRN PRN Reason: Hypoglycemia Lisinopril/HCTZ (Prinizide 20-25) 1 tab PO DAILY [facility] Last Admin: 01/18/18 08:25 Dose: 1 tab Hydralazine HCl (Apresoline) 20 mg SLOW IVP Q4H PRN PRN Reason: Sbp Greater Than 150 Last Admin: 01/16/18 22:02 Dose: 20 mg Hydralazine HCl (Apresoline) 25 mg PO QID [facility] Last Admin: 01/18/18 17:37 Dose: 25 mg Hydralazine HCl (Apresoline) 10 mg SLOW IVP Q4H PRN PRN Reason: Sbp Greater Than 150 Dextrose/Water (D5w) 1,000 mls @ 0 mls/hr IV .Q0M PRN PRN Reason: Hypoglycemia Sodium Chloride (Normal Saline 0.9%) 1,000 mls @ 50 mls/hr IV .Q20H [facility] Last Admin: 01/18/18 11:16 Dose: 1,000 mls Insulin Human Regular (Humulin R) 0 units SC .MILD SLIDING SCALE PRN PRN Reason: Mild Correctional Scale Insulin Human Regular (Humulin R) 0 units SC .BEDTIME SLIDING SC PRN PRN Reason: Bedtime Correctional Scale Labetalol HCl (Normodyne) 10 mg SLOW IVP Q4H PRN PRN Reason: Systolic BP > 150 Levothyroxine Sodium (Synthroid) 125 mcg PO 0600 JER[facility]D Last Admin: 01/18/18 05:57 Dose: 125 mcg Morphine Sulfate (Morphine) 2 mg SLOW IVP Q4H PRN PRN Reason: Moderate to Severe Pain (6-10) Last Admin: 01/17/18 01:55 Dose: 2 mg Nitroglycerin (Nitro-Bid 2% Ointment) 0.5 inch TOP Q8HR PRN PRN Reason: Sbp Greater Than 150 Ondansetron HCl (Zofran) 4 mg IVP Q6H PRN PRN Reason: Nausea/Vomiting Sodium Chloride (Flush - Normal Saline) 10 ml IVF PRN PRN PRN Reason: Saline Flush
[2018-01-19] MEDS: Levothyroxine Sodium 125 MCG TAB PO SCH (05:25)
[2018-01-19] MEDS: Insulin Regular 300 UNITS/3 ML VIAL SC PRN ×3 (06:50→17:21)
[2018-01-19] MEDS: Sodium Chloride 0.9% 1,000 ML IV SCH (06:50)
[2018-01-19] MEDS ORDERED: cloNIDine 0.1mg/24 Hour PATCH TD SCH (08:00)
[2018-01-19] MEDS: Carvedilol 3.125 MG TAB PO SCH ×2 (08:40→17:07)
[2018-01-19] MEDS: Atorvastatin Calcium 20 MG TAB PO SCH (09:10)
[2018-01-19] MEDS: hydrALAZINE 25 MG TAB PO SCH ×3 (09:10→20:08)
[2018-01-19] MEDS: Amlodipine 5 MG TAB PO SCH ×2 (09:11→20:08)
[2018-01-19] MEDS: Lisinopril/Hydrochlorothiazide 20/25 mg Tablet PO SCH (09:40)
--- NOTE | 2018-01-19 12:02 | PRG ---
DATE OF SERVICE: 01/19/2018 SERVICE: Pulmonary Medicine. INTERVAL HISTORY: The patient is doing great from a respiratory standpoint. He denies any chest felisa n or shortness of breath. He remains a little encephalopathic. That being said, his mentation is im proving ever so slightly. PHYSICAL EXAMINATION: VITAL SIGNS: Afebrile, pulse 75, blood pressure 143/73, respirations 26, saturation 100% on room air . GENERAL: The patient is somnolent, but wakes up. Without stimulation, will fall back to sleep withi n 10 seconds. HEENT: Normocephalic, atraumatic. Sclerae are white, conjunctivae pink. Oral mucosa is moist witho ut lesions. LUNGS: Decent air entry. There is no prolonged expiratory phase or wheezing present. HEART: Normal rate, regular. ABDOMEN: Soft, nontender, nondistended. Bowel sounds are positive. MUSCULOSKELETAL: No cyanosis or clubbing. No pitting in the bilateral lower extremities. ASSESSMENT: 1. Cerebrovascular accident, hemorrhagic. 2. Hypertensive emergency, resolved. DISCUSSION AND PLAN: The patient will be transitioned out of the ICU to the Stroke Unit once they fernando ve bed available. We will focus on aggressive physical therapy and occupational therapy. Pulmonary Critical Care will continue to follow along while he remains in this location. If he develops any sy stemic inflammatory response, dobson culture, chest x-ray will be performed. At this time, he has no ev idence of infection, however.
[2018-01-19] MEDS: Morphine 2 MG/ML SYRINGE SLOW IVP PRN (18:06)
--- NOTE | 2018-01-19 22:35 | PDOC.PN ---
- Subjective Encounter Start Date: 01/19/18 Encounter Start Time: 11:30 Patient seen and examined for med mngt. Off Cardene drip. No new complaints. No overnight events - Objective MAR Reviewed: Yes Vital Signs & Weight: Vital Signs (12 hours) Temp Pulse Pulse Pulse BP BP BP 01/19/18 20:08 68 01/19/18 20:00 01/19/18 16:00 97.9 F 68 110/54 L 01/19/18 12:00 98.2 F 01/19/18 10:52 60 75 139/64 124/70 BP Pulse Ox Pulse Ox Pulse Ox 01/19/18 20:08 01/19/18 20:00 100 01/19/18 16:00 01/19/18 12:00 01/19/18 10:52 143/73 H 98 100 Weight Admit Weight 160 lb 7.9 oz Weight 170 lb 3.15 oz Most Recent Monitor Data Heart Rate from ECG 66 NIBP 120/61 NIBP BP-Mean 80 Respiration from ECG 20 SpO2 100 I&O: 01/18/18 01/19/18 01/20/18 06:59 06:59 06:59 Intake Total 2031 2605 1836 Output Total 2695 1950 1180 Balance -664 655 656 Result Diagrams: 01/17/18 03:45 01/17/18 03:45 Additional Labs: Accuchecks 01/19/18 01/19/18 01/19/18 20:11 17:21 09:31 POC Glucose 135 H 163 H 158 H 01/19/18 01/18/18 05:18 23:25 POC Glucose 158 H 137 H EKG Reviewed by me: Yes (Tele SR) Phys Exam - Physical Examination Constitutional: NAD Respiratory: no wheezing, no rhonchi Cardiovascular: RRR, no rub Gastrointestinal: soft, non-tender, positive bowel sounds Musculoskeletal: no edema Neurological: moves all 4 limbs Left UE and LE 1-2/5 Dx/Plan - Plan DVT proph w/SCDs 1. DM2 2. HTN - off Cardene drip 3. HLD 4. Hypothyroidism 5. Hemorrhagic CVA - Mngt per Primary service 6. Swallow dys PLAN: Cont tube feeds Change Hydralazine to PO TID Add Clonidine patch and low dose Coreg Await Stroke unit bed Cont sliding scale Cont Lisinopril/HCTZ and Amlodipine Not on antiplatelet due to hemorrhagic CVA Cont other meds as below AM labs Review of Systems - Review of Systems Respiratory: negative: Cough, Dry, Shortness of Breath, Hemoptysis, SOB with Excertion, Pleuritic Pain, Sputum, Wheezing Cardiovascular: negative: chest pain, palpitations, orthopnea, paroxysmal nocturnal dyspnea, edema, light headedness, other - Medications/Allergies Allergies/Adverse Reactions: Allergies Allergy/AdvReac Type Severity Reaction Status Date / Time No Known Drug Allergies Allergy Verified 01/15/18 06:09 Medications: Current Medications Amlodipine Besylate (Norvasc) 5 mg PO BID [facility] Last Admin: 01/19/18 20:08 Dose: 5 mg Atorvastatin Calcium (Lipitor) 20 mg PO DAILY [facility] Last Admin: 01/19/18 09:10 Dose: 20 mg Benzonatate (Tessalon) 100 mg PO TIDPRN PRN PRN Reason: Cough Last Admin: 01/18/18 17:38 Dose: 100 mg Carvedilol (Coreg) 3.125 mg PO BID[facility] Last Admin: 01/19/18 17:07 Dose: 3.125 mg Clonidine (Catapres) 0.1 mg PO Q4H PRN PRN Reason: Systolic BP > 180 Last Admin: 01/17/18 20:23 Dose: 0.1 mg Clonidine (Rfyosgfy-Bol-1 Patch) 0.1 mg TD Q7D [facility] Last Admin: 01/19/18 08:40 Dose: 0.1 mg Dextrose/Water (Dextrose 50%) 25 gm SLOW IVP PRN PRN PRN Reason: Hypoglycemia Glucagon (Glucagon) 1 mg IM PRN PRN PRN Reason: Hypoglycemia Lisinopril/HCTZ (Prinizide 20-25) 1 tab PO DAILY [facility] Last Admin: 01/19/18 09:40 Dose: 1 tab Hydralazine HCl (Apresoline) 20 mg SLOW IVP Q4H PRN PRN Reason: Sbp Greater Than 150 Last Admin: 01/16/18 22:02 Dose: 20 mg Hydralazine HCl (Apresoline) 10 mg SLOW IVP Q4H PRN PRN Reason: Sbp Greater Than 150 Hydralazine HCl (Apresoline) 25 mg PO TID [facility] Last Admin: 01/19/18 20:08 Dose: 25 mg Dextrose/Water (D5w) 1,000 mls @ 0 mls/hr IV .Q0M PRN PRN Reason: Hypoglycemia Sodium Chloride (Normal Saline 0.9%) 1,000 mls @ 50 mls/hr IV .Q20H [facility] Last Admin: 01/19/18 06:50 Dose: 1,000 mls Insulin Human Regular (Humulin R) 0 units SC .MILD SLIDING SCALE PRN PRN Reason: Mild Correctional Scale Last Admin: 01/19/18 17:21 Dose: 2 unit Insulin Human Regular (Humulin R) 0 units SC .BEDTIME SLIDING SC PRN PRN Reason: Bedtime Correctional Scale Labetalol HCl (Normodyne) 10 mg SLOW IVP Q4H PRN PRN Reason: Systolic BP > 150 Last Admin: 01/18/18 23:20 Dose: 10 mg Levothyroxine Sodium (Synthroid) 125 mcg PO 0600 [facility] Last Admin: 01/19/18 05:25 Dose: 125 mcg Morphine Sulfate (Morphine) 2 mg SLOW IVP Q4H PRN PRN Reason: Moderate to Severe Pain (6-10) Last Admin: 01/19/18 18:06 Dose: 2 mg Nitroglycerin (Nitro-Bid 2% Ointment) 0.5 inch TOP Q8HR PRN PRN Reason: Sbp Greater Than 150 Ondansetron HCl (Zofran) 4 mg IVP Q6H PRN PRN Reason: Nausea/Vomiting Sodium Chloride (Flush - Normal Saline) 10 ml IVF PRN PRN PRN Reason: Saline Flush
[2018-01-20 04:30] LABS: #Eosinphils 0.1 thou/uL (0.0-0.7); #Lymphocytes 1.6 thou/uL (1.20-3.40); #Monocytes 0.4 thou/uL (0.11-0.59); #Neutrophils 4.6 thou/uL (1.40-6.50); %Basophils 0.5 % (0.0-1.0); %Eosinophils 1.5 % (0.0-10.0); %Monocytes 6.5 % (0.0-10.0); %Neutrophils 68.5 % (42.0-75.0); Hemoglobin 12.9 g/dL (14.0-18.0); Mean Corpuscular HGB CONC 33.1 g/dL (32.0-36.0); Mean Corpuscular Hemoglobin 30.8 pg (27.0-31.0); Mean Corpuscular Volume 93.2 fL (78.0-98.0); Mean Platelet Volume 10.2 fL (7.4-10.4); Platelet Count 158 thou/uL (130-400); RBC Distribution Width 11.7 % (11.5-14.5); Red Blood Cell (RBC) Count 4.17 mill/uL (4.70-6.10); White Blood Cell (WBC) Count 6.7 thou/uL (4.8-10.8)
[2018-01-20 04:49] LABS: Anion Gap 10 mmol/L (10-20); BUN (Urea Nitrogen) 16 mg/dL (8.4-25.7); Calc. Creatinine Clearance 83 mL/min (70-130); Calcium 8.9 mg/dL (7.8-10.44); Carbon Dioxide 27 mmol/L (23-31); Chloride 103 mmol/L (98-107); Estimated GFR-MDRD 81; Glucose 194 mg/dL (80-115); Magnesium 1.9 mg/dL (1.6-2.6); Phosphorus 3.3 mg/dL (2.3-4.7); Potassium 3.9 mmol/L (3.5-5.1); Sodium 136 mmol/L (136-145)
[2018-01-20] MEDS: Sodium Chloride 0.9% 1,000 ML IV SCH ×2 (04:51→20:30)
[2018-01-20] MEDS: Levothyroxine Sodium 125 MCG TAB PO SCH (05:49)
[2018-01-20] MEDS: Insulin Regular 300 UNITS/3 ML VIAL SC PRN ×4 (05:49→22:27)
--- NOTE | 2018-01-20 07:58 | PRG ---
DATE OF SERVICE: 01/20/2018 I agree with Anny Schumacher's evaluation. The patient remains stable and is awaiting a bed in the [facility]. He has not had further progression of his intracranial hemorrhage and is unlikely he will require any neurosurgical intervention. I will arrange a 4-week followup head CT. We will need to h old all anticoagulation and antiplatelet agents until that time. We will ask the Hospitalist Service to assume primary care responsibilities.
[2018-01-20] MEDS: Amlodipine 5 MG TAB PO SCH ×2 (09:04→20:30)
[2018-01-20] MEDS: Lisinopril/Hydrochlorothiazide 20/25 mg Tablet PO SCH (09:04)
[2018-01-20] MEDS: Atorvastatin Calcium 20 MG TAB PO SCH (09:04)
[2018-01-20] MEDS: Carvedilol 3.125 MG TAB PO SCH ×2 (09:05→18:12)
[2018-01-20] MEDS: hydrALAZINE 25 MG TAB PO SCH ×3 (09:05→20:29)
[2018-01-20 13:04] VITALS: BMI 27.2
--- NOTE | 2018-01-20 15:05 | PRG ---
DATE OF SERVICE: 01/20/2018 Paul Gilliland did well over the weekend. His vital signs have been stable. His blood pre ssure has been controlled. Heart rate is in the 50s. He is afebrile. Oximetry is 100% on room air. Respiratory rates in the teens. His exam is essentially unchanged. He is being moved out to the s troke unit. surgery plans in 4 weeks, head CT. We will sign off on transfer out of the Critical Care Unit.
--- NOTE | 2018-01-20 18:38 | PDOC.PN ---
- Subjective Encounter Start Date: 01/20/18 Encounter Start Time: 09:30 Patient seen and examined for med mngt. No new complaints. No overnight events - Objective MAR Reviewed: Yes Vital Signs & Weight: Vital Signs (12 hours) Temp Pulse Resp BP BP Pulse Ox 01/20/18 15:39 97.9 F 60 14 113/68 98 01/20/18 15:04 50 L 104/59 L 01/20/18 11:19 97.9 F 52 L 14 110/66 100 01/20/18 09:41 98.6 F 69 18 115/61 98 01/20/18 09:05 55 L 104/55 L 01/20/18 09:04 55 L 104/55 L 01/20/18 08:00 98.3 F 99 Weight Admit Weight 160 lb 7.9 oz Weight 168 lb 13.985 oz Most Recent Monitor Data Heart Rate from ECG 56 NIBP 104/55 NIBP BP-Mean 71 Respiration from ECG 16 SpO2 100 I&O: 01/19/18 01/20/18 01/21/18 06:59 06:59 06:59 Intake Total 2605 3173 368 Output Total 1950 1715 200 Balance 655 1458 168 Result Diagrams: 01/20/18 03:29 01/20/18 03:29 Additional Labs: Accuchecks 01/20/18 01/20/18 01/20/18 13:52 13:05 05:08 POC Glucose 216 H 248 H 198 H 01/19/18 20:11 POC Glucose 135 H EKG Reviewed by me: Yes (Tele SR) Phys Exam - Physical Examination Constitutional: NAD Respiratory: no wheezing, no rhonchi Cardiovascular: RRR, no rub Gastrointestinal: soft, non-tender, positive bowel sounds Musculoskeletal: no edema Dx/Plan - Plan DVT proph w/SCDs 1. DM2 2. HTN 3. HLD 4. Hypothyroidism 5. Hemorrhagic CVA - Mngt per Primary service 6. Swallow dys PLAN: Cont tube feeds Cont Hydralazine to PO TID DC Clonidine patch Cont low dose Coreg Cont sliding scale Cont Lisinopril/HCTZ and Amlodipine Not on antiplatelet due to hemorrhagic CVA Cont other meds as below Review of Systems - Review of Systems Cardiovascular: negative: chest pain, palpitations, orthopnea, paroxysmal nocturnal dyspnea, edema, light headedness, other Gastrointestinal: negative: Nausea, Vomiting, Abdominal Pain, Diarrhea, Constipation, Melena, Hematochezia, Other - Medications/Allergies Allergies/Adverse Reactions: Allergies Allergy/AdvReac Type Severity Reaction Status Date / Time No Known Drug Allergies Allergy Verified 01/15/18 06:09 Medications: Current Medications Amlodipine Besylate (Norvasc) 5 mg PO BID [facility] Last Admin: 01/20/18 09:04 Dose: 5 mg Atorvastatin Calcium (Lipitor) 20 mg PO DAILY [facility] Last Admin: 01/20/18 09:04 Dose: 20 mg Benzonatate (Tessalon) 100 mg PO TIDPRN PRN PRN Reason: Cough Last Admin: 01/18/18 17:38 Dose: 100 mg Carvedilol (Coreg) 3.125 mg PO BID[facility] Last Admin: 01/20/18 18:12 Dose: 3.125 mg Clonidine (Catapres) 0.1 mg PO Q4H PRN PRN Reason: Systolic BP > 180 Last Admin: 01/17/18 20:23 Dose: 0.1 mg Dextrose/Water (Dextrose 50%) 25 gm SLOW IVP PRN PRN PRN Reason: Hypoglycemia Glucagon (Glucagon) 1 mg IM PRN PRN PRN Reason: Hypoglycemia Lisinopril/HCTZ (Prinizide 20-25) 1 tab PO DAILY [facility] Last Admin: 01/20/18 09:04 Dose: 1 tab Hydralazine HCl (Apresoline) 20 mg SLOW IVP Q4H PRN PRN Reason: Sbp Greater Than 150 Last Admin: 01/16/18 22:02 Dose: 20 mg Hydralazine HCl (Apresoline) 10 mg SLOW IVP Q4H PRN PRN Reason: Sbp Greater Than 150 Hydralazine HCl (Apresoline) 25 mg PO TID [facility] Last Admin: 01/20/18 15:04 Dose: Not Given Dextrose/Water (D5w) 1,000 mls @ 0 mls/hr IV .Q0M PRN PRN Reason: Hypoglycemia Sodium Chloride (Normal Saline 0.9%) 1,000 mls @ 50 mls/hr IV .Q20H [facility] Last Admin: 01/20/18 04:51 Dose: 1,000 mls Insulin Human Regular (Humulin R) 0 units SC .MILD SLIDING SCALE PRN PRN Reason: Mild Correctional Scale Last Admin: 01/20/18 18:27 Dose: 3 unit Insulin Human Regular (Humulin R) 0 units SC .BEDTIME SLIDING SC PRN PRN Reason: Bedtime Correctional Scale Labetalol HCl (Normodyne) 10 mg SLOW IVP Q4H PRN PRN Reason: Systolic BP > 150 Last Admin: 01/18/18 23:20 Dose: 10 mg Levothyroxine Sodium (Synthroid) 125 mcg PO 0600 [facility]ALD Last Admin: 01/20/18 05:49 Dose: 125 mcg Morphine Sulfate (Morphine) 2 mg SLOW IVP Q4H PRN PRN Reason: Moderate to Severe Pain (6-10) Last Admin: 01/19/18 18:06 Dose: 2 mg Nitroglycerin (Nitro-Bid 2% Ointment) 0.5 inch TOP Q8HR PRN PRN Reason: Sbp Greater Than 150 Ondansetron HCl (Zofran) 4 mg IVP Q6H PRN PRN Reason: Nausea/Vomiting Sodium Chloride (Flush - Normal Saline) 10 ml IVF PRN PRN PRN Reason: Saline Flush
[2018-01-21] MEDS: Insulin Regular 300 UNITS/3 ML VIAL SC PRN ×3 (00:40→14:40)
[2018-01-21] MEDS: Morphine 2 MG/ML SYRINGE SLOW IVP PRN (02:39)
[2018-01-21 04:50] LABS: #Eosinphils 0.1 thou/uL (0.0-0.7); #Lymphocytes 1.3 thou/uL (1.20-3.40); #Monocytes 0.5 thou/uL (0.11-0.59); #Neutrophils 6.2 thou/uL (1.40-6.50); %Basophils 0.2 % (0.0-1.0); %Eosinophils 1.8 % (0.0-10.0); %Lymphocytes 15.8 % (21.0-51.0); %Monocytes 5.5 % (0.0-10.0); %Neutrophils 76.6 % (42.0-75.0); Hemoglobin 12.6 g/dL (14.0-18.0); Mean Corpuscular HGB CONC 32.9 g/dL (32.0-36.0); Mean Corpuscular Hemoglobin 30.7 pg (27.0-31.0); Mean Corpuscular Volume 93.5 fL (78.0-98.0); Mean Platelet Volume 9.6 fL (7.4-10.4); Platelet Count 162 thou/uL (130-400); RBC Distribution Width 11.5 % (11.5-14.5); White Blood Cell (WBC) Count 8.1 thou/uL (4.8-10.8)
[2018-01-21] MEDS: Levothyroxine Sodium 125 MCG TAB PO SCH (05:12)
[2018-01-21 05:43] LABS: Anion Gap 11 mmol/L (10-20); BUN (Urea Nitrogen) 21 mg/dL (8.4-25.7); Calc. Creatinine Clearance 81 mL/min (70-130); Calcium 9.2 mg/dL (7.8-10.44); Carbon Dioxide 26 mmol/L (23-31); Chloride 103 mmol/L (98-107); Estimated GFR-MDRD 80; Glucose 221 mg/dL (80-115); Magnesium 1.8 mg/dL (1.6-2.6); Potassium 3.9 mmol/L (3.5-5.1); Sodium 136 mmol/L (136-145)
[2018-01-21] MEDS ORDERED: Carvedilol 3.125 MG TAB PO SCH (08:00)
[2018-01-21] MEDS ORDERED: Amlodipine 5 MG TAB PO SCH (09:00)
[2018-01-21] MEDS: Lisinopril/Hydrochlorothiazide 20/25 mg Tablet PO SCH (09:12)
[2018-01-21] MEDS: Atorvastatin Calcium 20 MG TAB PO SCH (09:14)
[2018-01-21] MEDS: hydrALAZINE 25 MG TAB PO SCH ×2 (09:14→16:05)
[2018-01-21] MEDS ORDERED: Milk Of Magnesia 30 ML UDCUP PO PRN (12:52)
[2018-01-21] MEDS ORDERED: Polyethylene Glycol 3350 17 GM Packet PO PRN (12:52)
[2018-01-21] MEDS ORDERED: Bisacodyl 10 MG SUPP PR PRN (12:52)
[2018-01-21] MEDS ORDERED: Eucerin (Mineral Oil/Petrolatum,White) 30 gm Jar TOP PRN (12:52)
[2018-01-21] MEDS ORDERED: Senokot S 8.6-50 MG TAB PO SCH ×2 (13:00→21:00)
--- NOTE | 2018-01-21 15:45 | PQF ---
CLINICAL DOCUMENTATION IMPROVEMENT CLARIFICATION FORM: ICD-10 Updated PLEASE DO AN ADDENDUM TO THE PROGRESS NOTE WITH ANY DOCUMENTATION UPDATES OR ADDITIONS AND CARRY THROUGH TO DC SUMMARY. THANK YOU. DATE: 01/21/18 ATTN: Dr. Siddiqui Please exercise your independent, professional judgment in responding to the clarification form. Clinical indicators are provided on the bottom of this form for your review Please check appropriate box(s): [ ] Cerebral edema / Vasogenic edema [ ] Compression of brain Due to: [ ] Intracranial hematoma [ ] Acute cerebral infarction [ ] Other diagnosis [ x ] Unable to determine In addition, please specify: Present on Admission (POA): [ ] Yes [ ] No [ ] Unable to determine For continuity of documentation, please document condition throughout progress notes and discharge summary. Thank You. CLINICAL INDICATORS - SIGNS / SYMPTOMS / LABS H&P 01/15: CT HEAD ON ARRIVAL WAS NOTABLE FOR A LARGE R SIDED BASAL GANGLIA, INTRACRANIAL HEMORRHAGE WITH EXTENSION INTO THE RIGHT FRONTAL LOBE WITH EVIDENCE OF MIDLINE SHIFT FROM R TO L. PN 01/18: HIS SCAN , 2 DAYS AGO, SHOWED SOME MILDLY INCREASING EDEMA. RISKS: H&P: ACUTE INTRACRANIAL HEMORRHAGE, LIKELY HYPERTENSIVE IN ORIGIN TREATMENT: ADMIT TO ICU FOR Q1 NEURO CHECKS. ORDER 01/15: CT BRAIN WO CON ORDER 01/16: CT BRAIN WO CON Thank you, Esther (This form is maintained as a part of the permanent medical record) 2015 [employer]. All Rights Reserved Esther Fernandez, RN, BSN [email or web address] Office: [phone] [facility]
[2018-01-21 16:07] VITALS: BP 119/69; TEMP 98.8
--- NOTE | 2018-01-22 00:36 | DIS ---
DATE OF ADMISSION: 01/15/2018 DATE OF DISCHARGE: 01/21/2018 DISCHARGE DISPOSITION: Inpatient rehabilitation. ADMITTING PHYSICIAN: Dr. Carter. CONSULTING PHYSICIAN: [facility] team. ALLERGIES: No known drug allergies. DISCHARGE MEDICATIONS: 1. Amlodipine 5 mg b.i.d. 2. Carvedilol 3.125 b.i.d. 3. Clonidine as needed. 4. Glipizide 5 mg daily. 5. Hydralazine 25 mg three times daily as needed for systolic blood pressure over 150. 6. Lisinopril 10 mg b.i.d. 7. All other home medications were left unchanged. The patient was seen and examined on the day of discharge. Denies any new complaints. No chest pain , shortness of breath or palpitations. BRIEF HOSPITAL COURSE: The patient is a 67-year-old male who was admitted by Neurosurgery team with intracranial bleed to the CCU on 01/15/2018. Hospitalist team was consulted for medical management. Please refer to the history and physical for further details. The patient was placed on Cardene drip initially that was gradually changed to oral . The patie nt initially failed swallow evaluation for which Dobhoff tube was placed. Neurosurgery later signed off. He has been accepted by inpatient rehabilitation. Please refer to the Neurosurgery notes for d etails regarding intracranial hemorrhage. FINAL DIAGNOSES: 1. Acute intracranial hemorrhage, likely hypertensive in origin with midline shift. 2. Diabetes mellitus type 2. 3. Hypertension. 4. Hyperlipidemia. 5. Hypothyroidism. 6. Swallow dysfunction. 7. Hyponatremia. Total time coordinating the discharge of this patient was 38 minutes. INPATIENT CONSULTANTS: Critical Care .
--- NOTE | 2018-01-22 10:53 | PQF ---
CLINICAL DOCUMENTATION IMPROVEMENT CLARIFICATION FORM: ICD-10 Updated PLEASE DO AN ADDENDUM TO THE PROGRESS NOTE WITH ANY DOCUMENTATION UPDATES OR ADDITIONS AND CARRY THROUGH TO DC SUMMARY. THANK YOU. DATE: 01/22/18 Dr. Carter Please exercise your independent, professional judgment in responding to the clarification form. Clinical indicators are provided on the bottom of this form for your review Please check appropriate box(s): [ ] Cerebral edema / Vasogenic edema [ ] Compression of brain Due to: [ ] Intracranial hematoma [ ] Acute cerebral infarction [ ] Other diagnosis [ ] Unable to determine In addition, please specify: Present on Admission (POA): [ ] Yes [ ] No [ ] Unable to determine For continuity of documentation, please document condition throughout progress notes and discharge summary. Thank You. CLINICAL INDICATORS - SIGNS / SYMPTOMS / LABS H&P 01/15: CT HEAD ON ARRIVAL WAS NOTABLE FOR A LARGE R SIDED BASAL GANGLIA, INTRACRANIAL HEMORRHAGE WITH EXTENSION INTO THE RIGHT FRONTAL LOBE WITH EVIDENCE OF MIDLINE SHIFT FROM R TO L. PN 01/18: HIS SCAN , 2 DAYS AGO, SHOWED SOME MILDLY INCREASING EDEMA. RISKS: H&P: ACUTE INTRACRANIAL HEMORRHAGE, LIKELY HYPERTENSIVE IN ORIGIN TREATMENT: ADMIT TO ICU FOR Q1 NEURO CHECKS. ORDER 01/15: CT BRAIN WO CON ORDER 01/16: CT BRAIN WO CON Thank you, Esther (This form is maintained as a part of the permanent medical record) 2014 [employer]. All Rights Reserved Esther Fernandez RN, BSN [email or web address] Office: [phone] [facility]
== END 2018-01-21 17:31 | DRG 64 ==
LOC: ERS 00:25 → CCU 02:13 → 2SE 01-20 09:59
PROVIDERS: ADMIT Neurological Surgery; ATTEND Internal Medicine
DX: I61.1 Nontraumatic intracerebral hemorrhage in hemisphere, cortical (principal); G93.6 Cerebral edema; G81.94 Hemiplegia, unspecified affecting left nondominant side; G93.40 Encephalopathy, unspecified; I16.1 Hypertensive emergency; E87.1 Hypo-osmolality and hyponatremia; E11.9 Type 2 diabetes mellitus without complications; I10 Essential (primary) hypertension; E78.5 Hyperlipidemia, unspecified; E03.9 Hypothyroidism, unspecified; R29.810 Facial weakness; R40.2242 Coma scale, best verbal response, confused conversation, at arrival to emergency department; R40.2362 Coma scale, best motor response, obeys commands, at arrival to emergency department; R40.2142 Coma scale, eyes open, spontaneous, at arrival to emergency department; R40.2412 Glasgow coma scale score 13-15, at arrival to emergency department; R47.1 Dysarthria and anarthria
CPT/HCPCS: 36415; 36416; 51702; 70450; 74018; 80048; 80053; 82553; 83735; 84100; 84484; 85025; 85610; 85730; 86850; 86900; 86901; 90471; 90662; 93005; 96365; G0008; G8978-GP-CM; G8979-GP-CK; G8987-GO-CM; G8988-GO-CJ; G8996-GN-CK; G8996-GN-CN; G8997-GN-CI; G8997-GN-CL; J0131; J0360; J1815; J2270; J7050